=== PATIENT | male | born 1935 | race Caucasian/White ===

== ENCOUNTER 2019-01-05 13:01 | Emergency (ER) | payer MEDICARE ==
[2019-01-05] VITALS (7 sets, daily range): BP systolic 77–129; BP diastolic 51–68
[~2019-01-05] VITALS: Ht 172.7 cm; Wt 90.0 kg
[~2019-01-05 13:01] MED LIST: ATENOLOL50 MG PO; BETIMOL0.25 % OP; BONIVA150 M1; DORZOLAMIDE2 % OP; FINASTERIDE5 MG PO; FUROSEMIDE40 MG PO; HYTRIN5 MG/CAP PO; KLOR-CON M2020 MEQ PO; LATANOPROST0.005 % OP; MIRALAX3350 N1 PO; OMEPRAZOLE20 MG PO; SIMVASTATIN20 MG PO; WARFARIN2.5 MG PO
[2019-01-05 13:26] LABS: IMMATURE GRANULOCYTES 0.8 % (0.0-5.0); MEAN CELL VOLUME 89.8 fL CALC (80.0-100.0); MEAN CORPUSCULAR HGB 27.7 pG CALC (26.0-32.0); MEAN CORPUSCULAR HGB CONC 30.8 g/L CALC (32.0-36.0); NEUT# 6.7 thou/uL (1.82-7.42); RED BLOOD COUNT 4.12 mill/uL (4.70-6.10); RED CELL DISTRI WIDTH 14.8 % (11.5-15.5)
[2019-01-05 13:31] LABS: HEMOGLOBIN 11.4 g/dl (14.0-18.0)
[2019-01-05 13:42] LABS: PROTHROMBIN TIME 21.2 SECONDS (9.0-12.5)
[2019-01-05 14:05] LABS: ALKALINE PHOSPHATASE 54 u/l (38-126); BILIRUBIN, TOTAL 0.6 mg/dL (0.0-1.4); BUN 18 mg/dL (8-23); BUN/CREATININE RATIO 18 (12-20 (CALC)); CARBON DIOXIDE 24 mmol/l (22-30); CHLORIDE 105 mmol/l (95-108); GFR > 60 ML/MIN (>=60 (CALC)); GFR FOR AFR.AMER. > 60 ML/MIN (>=60 (CALC)); POTASSIUM 4.8 mmol/l (3.5-5.1); SGOT/AST 18 u/l (19-48); TOTAL PROTEIN 5.3 g/dL (6.3-8.2)
[2019-01-05 14:08] LABS: ANION GAP 13 (6-22 (CALC)); SODIUM 137 mmol/l (137-146)
== END 2019-01-05 13:58 | disposition short-term general hospital (02) ==
LOC: ED 13:01
PROVIDERS: Emergency Medicine
PROC: 30233N1 Transfusion of Nonautologous Red Blood Cells into Peripheral Vein, Percutaneous Approach (ICD-10-PCS; principal; 2019-01-05)
PROC: 30233N1 Transfusion of Nonautologous Red Blood Cells into Peripheral Vein, Percutaneous Approach (ICD-10-PCS; 2019-01-05)
DX: K92.2 Gastrointestinal hemorrhage, unspecified (principal); R42 Dizziness and giddiness; R11.0 Nausea; R53.1 Weakness; I10 Essential (primary) hypertension; I48.91 Unspecified atrial fibrillation
CPT/HCPCS: P9016